=== PATIENT | male | born 1940 | race Caucasian/White ===

== ENCOUNTER 2017-10-04 07:10 | Inpatient (IN) | payer MEDICARE, OTHER ==
[~2017-10-04] VITALS: Ht 177.8 cm; Wt 89.0 kg
[~2017-10-04 07:10] MED LIST: ALLO300 PO; ASPI81CH PO; ASPI81EC PO; CAPT25 PO; CARV3.125 PO; CLOP75 PO; CRESTOR PO; Crestor40 MG PO; DOCU100 PO; DONE10 PO; FENO160 PO; FENOFIBRATE; FENOFIBRATE PO; HYDR1TAB94 PO; LORA.5 PO; OMEP20ER PO; ONDA4ODT MM; PANT40 PO; POTCHL10ER PO; QUET25 PO; ROSU5 PO; Super B Comple150 MG PO; Vitamin B Comple1 EA PO; [UNRECOGNIZED DRUG - OTHER] PO
[2017-10-04 07:50] LABS: BASOPHILS ABSOLUTE AUTO 0.03 K/mm3 (0.00-0.23); BASOPHILS PERCENT AUTO 0 % (0-2); EOSINOPHILS ABSOLUTE AUTO 0.08 K/mm3 (0.00-0.68); EOSINOPHILS PERCENT AUTO 1 % (0-6); Hematocrit 34.9 % (37.0-53.0); Hemoglobin 11.4 g/dL (13.5-17.5); IMMATURE GRAN ABSOLUTE AUTO 0.04 K/mm3 (0.00-0.10); IMMATURE GRAN PERCENT AUTO 0 % (0-1); LYMPHOCYTES PERCENT AUTO 7 % (21-46); MONOCYTES PERCENT AUTO 8 % (4-13); Mean Corpuscular HGB 28.8 pg (26.0-34.0); Mean Corpuscular HGB Conc 32.7 g/dL (31.5-36.5); Mean Corpuscular Volume 88 fL (80-100); Mean Platelet Volume 10.4 fL (9.1-12.4); NEUTROPHILS ABSOLUTE AUTO 8.19 K/mm3 (1.96-9.15); NEUTROPHILS PERCENT AUTO 83 % (41-73); Platelet Count 128 K/mm3 (150-400); RDW Coefficient Variation 13.5 % (11.7-14.2); RDW Standard Deviation 43.8 fL (35.1-46.3); Red Blood Cell Count 3.96 M/mm3 (4.30-5.90); White Blood Cell Count 9.84 K/mm3 (4.00-11.30)
[2017-10-04 08:00] LABS: Alanine Aminotransfer (ALT/SGP 17 U/L (12-78); Albumin, Blood 3.4 g/dL (3.4-5.0); Alk Phos 63 U/L (50-136); Anion Gap 10 mmol/L (6-16); Aspartate Aminotrans (AST/SGOT 24 U/L (12-37); Bilirubin, Total 1.2 mg/dL (0.1-1.0); Blood Urea Nitrogen 20 mg/dL (8-24); Bun/Creatinine Ratio 25.2 (12.0-20.0); CO2, Blood 24 mmol/L (21-32); Calcium, Blood 8.6 mg/dL (8.5-10.1); Chloride, Blood 104 mmol/L (98-108); Creatinine, Blood 0.79 mg/dL (0.60-1.20); Globulin, Blood 3.3 g/dL (2.2-4.0); Glomerular Filtration Rate >60 (60-); Glucose, Blood 112 mg/dL (70-99); Potassium, Blood 3.7 mmol/L (3.5-5.5); Sodium, Blood 138 mmol/L (136-145); Total Protein, Blood 6.7 g/dL (6.4-8.2)
[2017-10-04 08:24] LABS: Source, Urine Catheter
[2017-10-04 08:34] LABS: Bilirubin, Urine Neg (Neg); Blood, Urine 5+ (Neg); Glucose Qualitative, Urine Neg (Neg); Ketones, Urine Neg (Neg); Leukocyte Esterase, Urine 2+ (Neg); Nitrite, Urine Neg (Neg); Protein, Urine 4+ (Neg); Urobilinogen, Urine NORM (Normal)
[2017-10-04 08:35] LABS: Appearance, Urine Bloody (Clear); Color, Urine Red (P-Yellow)
[2017-10-04 08:42] LABS: Red Blood Cells, Urine TNTC /hpf (0-2)
[2017-11-05] MEDS ORDERED: ONDA4ODT MM (13:59)
[2017-11-05] MEDS ORDERED: SALS500 PO (14:00)
[2017-11-05] MEDS ORDERED: NITR.6SL SL (14:00)
== END 2017-10-04 20:40 | disposition short-term general hospital (02) | DRG 707 ==
LOC: ER 07:10 → MEDS 10:29
PROVIDERS: Internal Medicine
PROC: 0VT04ZZ Resection of Prostate, Percutaneous Endoscopic Approach (ICD-10-PCS; principal; 2017-10-01)
PROC: 07BC4ZX Excision of Pelvis Lymphatic, Percutaneous Endoscopic Approach, Diagnostic (ICD-10-PCS; 2017-10-01)
DX: C61 Malignant neoplasm of prostate (principal); G93.40 Encephalopathy, unspecified; T83.511A Infection and inflammatory reaction due to indwelling urethral catheter, initial encounter; F03.91 Unspecified dementia, unspecified severity, with behavioral disturbance; N39.0 Urinary tract infection, site not specified; E78.5 Hyperlipidemia, unspecified; K21.9 Gastro-esophageal reflux disease without esophagitis; I10 Essential (primary) hypertension; M10.9 Gout, unspecified; Z95.2 Presence of prosthetic heart valve; R45.1 Restlessness and agitation; R33.8 Other retention of urine; Y84.6 Urinary catheterization as the cause of abnormal reaction of the patient, or of later complication, without mention of misadventure at the time of the procedure
CPT/HCPCS: 36415; 70450; 76857; 80053; 81001; 85014; 85018; 85025; 86850; 86900; 86901; 87086; 88304; 88305; 88309; 96374; 96375; 99283; 99285; J0360; J0690; J0696; J1100; J1630; J1650; J2060; J2250; J2370; J2405; J2710; J3010; J3480; J7042; J7120

== ENCOUNTER 2017-10-26 11:28 | Emergency (ER) | payer MEDICARE, OTHER ==
[~2017-10-26] VITALS: Ht 177.8 cm; Wt 77.1 kg
[2017-10-26] MEDS ORDERED: HYDPAM50 PO (11:46)
[2017-10-26] MEDS ORDERED: POTA10T PO (11:47)
[2017-10-26] MEDS ORDERED: LANS15EC PO (11:47)
[2017-10-26] MEDS ORDERED: Zyprexa10 MG PO (11:49)
[2017-11-05] MEDS ORDERED: ONDA4ODT MM (13:59)
[2017-11-05] MEDS ORDERED: SALS500 PO (14:00)
[2017-11-05] MEDS ORDERED: NITR.6SL SL (14:00)
== END 2017-10-26 14:28 | disposition home or self-care (01) ==
LOC: ER 11:28
DX: M25.511 Pain in right shoulder (principal); I10 Essential (primary) hypertension; F03.90 Unspecified dementia, unspecified severity, without behavioral disturbance, psychotic disturbance, mood disturbance, and anxiety; Z79.899 Other long term (current) drug therapy; Z79.02 Long term (current) use of antithrombotics/antiplatelets; Z79.82 Long term (current) use of aspirin; Z87.891 Personal history of nicotine dependence; W18.30XA Fall on same level, unspecified, initial encounter
CPT/HCPCS: 73030; 99283

== ENCOUNTER 2017-10-27 10:07 | Emergency (ER) | payer MEDICARE, OTHER ==
[~2017-10-27] VITALS: Ht 180.3 cm; Wt 79.4 kg
[~2017-10-27 10:07] MED LIST changes: +HYDPAM50 PO; +LANS15EC PO; +POTA10T PO; +Zyprexa10 MG PO
[2017-11-05] MEDS ORDERED: ONDA4ODT MM (13:59)
[2017-11-05] MEDS ORDERED: NITR.6SL SL (14:00)
[2017-11-05] MEDS ORDERED: SALS500 PO (14:00)
== END 2017-10-27 12:15 | disposition home or self-care (01) ==
LOC: ER 10:07
DX: S22.31XA Fracture of one rib, right side, initial encounter for closed fracture (principal); S30.0XXA Contusion of lower back and pelvis, initial encounter; S30.22XA Contusion of scrotum and testes, initial encounter; S70.12XA Contusion of left thigh, initial encounter; S70.11XA Contusion of right thigh, initial encounter; F03.90 Unspecified dementia, unspecified severity, without behavioral disturbance, psychotic disturbance, mood disturbance, and anxiety; Z79.82 Long term (current) use of aspirin; Z79.899 Other long term (current) drug therapy; W19.XXXA Unspecified fall, initial encounter
CPT/HCPCS: 71101; 73502; 99283